=== PATIENT | male | born 1970 | race Caucasian/White ===

== ENCOUNTER 2019-06-03 15:11 | Emergency (ER) | payer SELFPAY ==
[~2019-06-03] VITALS: Ht 152.4 cm; Wt 105.7 kg
--- NOTE | 2019-06-03 15:11 | NUR ---
SADEA RA 85 "was found in car bystander called ?meth abuse/Overdose, possible seizure-Given 5mg IM versed in field." to er bed 6, hooked to monitor, changed to hosp gown, warm blanket provided, dr whipple at bedside
--- NOTE | 2019-06-03 15:15 | NUR ---
SEIZURE PRECAUTIONS APPLIED
[2019-06-03] MEDS ORDERED: LEVETIRACETAM (500MG) 500 MG in IV NS 0.9% 100 ML IV ONE (15:30)
[2019-06-03 15:46] LABS: BASOPHILS # (AUTO) 0.1 /CMM (0.0-0.2); EOSINOPHILS % (AUTO) 1.3 % (0.0-6.0); HEMATOCRIT 41 % (39-51); HEMOGLOBIN 13.7 g/dL (13.5-17.5); LYMPHOCYTES # (AUTO) 0.9 /CMM (0.8-4.8); LYMPHOCYTES % (AUTO) 12.1 % (20.0-44.0); MEAN CORPUSCULAR HGB CONC 34 g/dl (31.0-36.0); MEAN CORPUSCULAR VOLUME 93 fL (80-96); MONOCYTES # (AUTO) 0.6 /CMM (0.1-1.30); MONOCYTES % (AUTO) 7.8 % (2.0-12.0); NEUTROPHILS # (AUTO) 5.8 /CMM (1.8-8.9); NEUTROPHILS % (AUTO) 77.8 % (43.0-81.0); PLATELET COUNT (AUTO) 269 /CMM (150-450); RED BLOOD CELL COUNT(AUTO) 4.37 MIL/uL (4.5-6.0); WHITE BLOOD COUNT (AUTO) 7.4 K/uL (4.3-11.0)
--- NOTE | 2019-06-03 15:47 | NUR ---
URINE SAMPLE COLLECTED VIA STRAIGHT CATHETER, SAMPLE SENT TO LAB
--- NOTE | 2019-06-03 15:51 | NUR ---
wheeled out via [place]ney for ct scan
[2019-06-03 15:55] LABS: CALCIUM, SERUM 8.9 mg/dL (8.5-10.1); CARBON DIOXIDE 27 mmol/L (21-32); CHLORIDE 103 mmol/L (98-107); GLUCOSE 112 mg/dL (74-106); POTASSIUM 3.1 mmol/L (3.5-5.1); SODIUM SERUM 142 mmol/L (136-145); UREA NITROGEN, BLOOD 21 mg/dL (7-18)
[2019-06-03 16:01] LABS: ALANINE AMINOTRANSFERASE 39 U/L (12-78); ALCOHOL, BLOOD < 3 mg/dL (0-0); ALKALINE PHOSPHATASE 83 U/L (46-116); ASPARTATE AMINOTRANSFERASE 28 U/L (15-37); BILIRUBIN,DIRECT 0.2 mg/dL (0.0-0.2); BILIRUBIN,TOTAL 1.2 mg/dL (0.2-1.0); TOTAL PROTEIN, SERUM 7.2 g/dL (6.4-8.2)
[2019-06-03 16:04] LABS: SERUM AMMONIA 10 umol/L (11-32)
[2019-06-03 18:31] LABS: PHENYTOIN (DILANTIN) < 0.5 ug/ml (10.0-20.0)
--- NOTE | 2019-06-03 18:42 | NUR ---
patient in bed, asleep, responds to painful stimuli, hooked to monitor, will continue to monitor accordingly.
--- NOTE | 2019-06-03 19:05 | NUR ---
Patient in bed awake, does not recall what happened. hooked to monitor, will continue to monitor accordingly
--- NOTE | 2019-06-03 19:32 | NUR ---
PATIENT IS AWAKE. AAOX4. NO SOB. BREATHING EVENLY AND UNLABORED ON ROOM AIR. BIZARRE BEHAVIOR. PASSED SWALLOW EVALUATION. CONNECTED TO MONITOR.
--- NOTE | 2019-06-03 19:34 | NUR ---
REPORT GIVEN TO HARRY FUENTES FOR [facility]
--- NOTE | 2019-06-03 19:57 | NUR ---
IV removed. Catheter intact and site benign. Pressure and 4x4 applied to site. No bleeding noted. Patient discharged to home in stable condition. Written and verbal after care instructions given. Patient verbalizes understanding of instruction.
[2019-06-03 20:13] VITALS: BP 129/77
== END 2019-06-03 20:13 | disposition home or self-care (01) ==
LOC: ER 15:15
DX: F14.188 Cocaine abuse with other cocaine-induced disorder (principal); R56.9 Unspecified convulsions; R41.82 Altered mental status, unspecified; R40.2342 Coma scale, best motor response, flexion withdrawal, at arrival to emergency department; R40.2222 Coma scale, best verbal response, incomprehensible words, at arrival to emergency department; R40.2112 Coma scale, eyes open, never, at arrival to emergency department; R00.0 Tachycardia, unspecified
CPT/HCPCS: 36415; 51701; 70450; 71045; 72125; 80048; 80076; 80185; 80305; 80307; 82140; 82962; 85025; 85730; 93005; 96365; 99285; J1953; J7030; G0480